=== PATIENT | male | born 1960 | race Caucasian/White ===

== ENCOUNTER 2017-09-27 12:01 | Outpatient (CLI) | payer OTHER ==
[2017-09-27 12:44] LABS: Hematocrit 42.8 % (35.5-45.6); Hemoglobin 14.8 gm/dl (11.8-15.2); Mean Corpuscular HGB Conc 35 % (32-34); Mean Corpuscular Hemoglobin 32 pg (28-32); Mean Corpuscular Volume 93 fl (84-94); Platelet Count 254 K/mm3 (140-440)
[2017-09-27 12:54] LABS: Alanine Aminotransferase 18 units/L (7-56); Albumin 3.9 g/dL (3.9-5); BUN/Creatinine Ratio 14; Blood Urea Nitrogen 11 mg/dL (9-20); Calcium 8.5 mg/dL (8.4-10.2); Hemolysis Index 9
== END 2017-09-27 12:02 | disposition home or self-care (01) ==
LOC: CARD 12:01
PROVIDERS: ATTEND Surgery
DX: K40.90 Unilateral inguinal hernia, without obstruction or gangrene, not specified as recurrent (principal)
CPT/HCPCS: 36415; 80053; 85027; 93005; 93010

== ENCOUNTER 2017-10-06 06:26 | Day surgery (SDC) | payer OTHER ==
[2017-10-06] MEDS ORDERED: WATER FOR IRRIG STERILE IR ONE (07:02)
[2017-10-06] MEDS ORDERED: WATER FOR IRRIG STERILE ONE (07:02)
--- NOTE | 2017-10-06 07:23 | Anesthesia Consultation ---
Anesthesia Consult and Med Hx Date of service: 10/06/17 - Airway Anesthetic Teeth Evaluation: Good ROM Head & Neck: Adequate Mental/Hyoid Distance: Adequate Mallampati Class: Class I Intubation Access Assessment: Good - Pulmonary Exam CTA: Yes - Cardiac Exam Cardiac Exam: RRR - Pre-Operative Health Status ASA Pre-Surgery Classification: ASA2 Proposed Anesthetic Plan: MAC - Pulmonary Hx Smoking: Yes
--- NOTE | 2017-10-06 07:28 | Anesthesia Day of Surgery ---
Anesthesia Day of Surgery - Day of Surgery Patient Examined: Yes Patient H&P Reviewed: Yes Patient is NPO: Yes
--- NOTE | 2017-10-06 07:31 | Anesthesia Day of Surgery ---
Anesthesia Day of Surgery - Day of Surgery Patient Examined: Yes Patient H&P Reviewed: Yes Patient is NPO: Yes
[2017-10-06] MEDS ORDERED: NACL 0.9% 1000 ML 1,000 ML ONE (07:36)
[2017-10-06] MEDS ORDERED: DIPRIVAN 10 MG/ML IV ONE ×2 (07:40)
--- NOTE | 2017-10-06 08:47 | Procedure Note ---
Date of procedure: 10/06/17 Pre-op diagnosis: Screening colonoscopy Post-op diagnosis: same Procedure: Colonoscopy to cecum Description of procedure: Pt was placed in a left side down position. He was sedated IV by anesthesia. The colonoscope was inserted into his rectum and was advanced retrograde while directly visualizing the colonic lumen. The prep was fair. Once the cecum was identified, the scope was slowly withdrawn with careful, circumferential visualization of the colonic mucosa. No polyps, tumors , ulcerations or diverticula were noted although small polyps/tumors could have been missed b/o the prep. Retroflexed view of the distal rectum was also performed and was unrevealing. Insufflated air was suctioned and the scope was withdrawn. Pt tolerated the procedure well. Anesthesia: MAC Surgeon: ZAIDA ANGELES Estimated blood loss: none Pathology: none Condition: stable Disposition: PACU
--- NOTE | 2017-10-06 09:57 | Post Anesthesia Evaluation ---
- Post Anesthesia Evaluation Patient Participated: Yes Airway Patent: Yes Stable Respiratory Function: Yes Nausea/Vomiting: No Temp > 96.8F: Yes Pain Manageable: Yes Adequeate Hydration: Yes Anesthesia Complications: No
[2017-10-06 11:46] VITALS: BP 136/92
== END 2017-10-06 06:27 | disposition home or self-care (01) ==
LOC: GIO 06:26
PROVIDERS: ATTEND Surgery
DX: Z12.11 Encounter for screening for malignant neoplasm of colon (principal); Z87.891 Personal history of nicotine dependence
CPT/HCPCS: 45378; J2704; J7030

== ENCOUNTER 2017-10-19 11:18 | Day surgery (SDC) | payer OTHER ==
[2017-10-19] MEDS ORDERED: ANCEF/STERILE WATER 2 GM/20 ML IV NR (12:00)
--- NOTE | 2017-10-19 12:20 | Anesthesia Consultation ---
Anesthesia Consult and Med Hx Date of service: 10/19/17 - Airway Anesthetic Teeth Evaluation: Good ROM Head & Neck: Adequate Mental/Hyoid Distance: Adequate Mallampati Class: Class II Intubation Access Assessment: Probably Good - Pulmonary Exam CTA: Yes - Cardiac Exam Cardiac Exam: RRR - Pre-Operative Health Status ASA Pre-Surgery Classification: ASA2 Proposed Anesthetic Plan: General - Pulmonary Hx Smoking: Yes
--- NOTE | 2017-10-19 12:21 | Anesthesia Day of Surgery ---
Anesthesia Day of Surgery - Day of Surgery Patient Examined: Yes Patient H&P Reviewed: Yes Patient is NPO: Yes
--- NOTE | 2017-10-19 12:37 | History and Physical Report ---
History of Present Illness Date of examination: 10/19/17 Chief complaint: RIH History of present illness: 57 yo male with a 5 year h/o a slowly enlarging right groin mass. This is becoming increasingly more tender. He denies associated nausea, vomiting, melena, hematochezia or change in bowel habits. A colonoscopy on 10/06/17 was unremarkable. Past History Past Medical History: No medical history Past Surgical History: No surgical history Social history: smoking (He smokes 3-4 cigarettes per day. He drinks alcohol only occasionally.) Medications and Allergies Allergies Allergy/AdvReac Type Severity Reaction Status Date / Time No Known Allergies Allergy Unverified 09/27/17 12:02 Active Meds: Active Medications Cefazolin Sodium (Ancef/Sterile Water 2 Gm/20 Ml) 2 gm IV PREOP NR Stop: 10/19/17 23:00 Famotidine (Pepcid) 20 mg PO PREOP NR Stop: 10/19/17 23:59 Lactated Ringer's (Lactated Ringers) 1,000 mls @ 100 mls/hr IV DIRECT MAG Midazolam HCl (Versed) 2 mg IV PREOP NR Stop: 10/19/17 23:59 Review of Systems All systems: negative (ROS was o/w unremarkable.) Exam - General physical appearance Positive: well developed, well nourished, no distress - Eyes Positive: PERRL, normal occular movement - ENT Positive: normal pinna, normal nares, normal mucosa, no hearing loss, no congestion - Neck Positive: no masses, no bruits, trachea midline, no venous distension - Respiratory Positive: normal expansion, normal respiratory effort, clear to auscultation - Cardiovascular Rhythm: regular Heart Sounds: Present: S1 & S2. Absent: rub, click - Extremities Extremities: no ischemia, pulses symmetrical, No edema - Breasts Breasts: normal, no mass, no skin changes - Abdomen Abdomen: Present: soft, bowel sounds normal. Absent: tender, distended Hernia: none (There is a moderate sized, reducible RIH.) - Genitourinary Male Genitourinary: normal Female Genitourinary: normal - Integumentary no rash, no growths, no abnormal pigmentation - Neurologic Neurologic: alert and oriented to time, place and person, motor strength and sensation are grossly intact - Musculoskeletal normal gait, normal posture - Psychiatric Psychiatric: appropriate mood/affect, intact judgment & insight Results - Imaging EKG: report reviewed (ECG performed on 09/27/17 revealed NSR and was o/w unremarkable.) Assessment and Plan - Patient Problems (1) Right inguinal hernia Current Visit: Yes Status: Acute Plan to address problem: 1) Laparoscopic repair 2) Prophylactic Ancef, IPC and SQ Heparin (2) Tobacco abuse Current Visit: Yes Status: Acute Plan to address problem: 1) Encouraged pt to stop smoking. He is aware that smoking is associated with an increased risk of infection and hernia recurrence.
[2017-10-19] MEDS ORDERED: HEPARIN SUB-Q NR (12:45)
[2017-10-19] MEDS ORDERED: DIPRIVAN 10 MG/ML IV ONE (12:59)
[2017-10-19] MEDS ORDERED: PEPCID PO NR (13:00)
[2017-10-19] MEDS ORDERED: DILAUDID ONE (13:00)
[2017-10-19] MEDS ORDERED: ZEMURON IV ONE (13:00)
[2017-10-19] MEDS ORDERED: XYLOCAINE MPF 2% ONE (13:00)
[2017-10-19] MEDS ORDERED: VERSED IV NR (13:00)
[2017-10-19] MEDS ORDERED: SUBLIMAZE ONE ×2 (13:00→14:37)
[2017-10-19] MEDS ORDERED: LACTATED RINGERS 1,000 ML IV SCH (13:00)
[2017-10-19] MEDS ORDERED: MARCAINE 0.25% INFILTRATI ONE ×2 (13:17→14:22)
[2017-10-19] MEDS ORDERED: DECADRON ONE (14:06)
[2017-10-19] MEDS ORDERED: ROBINUL ONE ×2 (14:27)
[2017-10-19] MEDS ORDERED: ZOFRAN ONE (14:27)
[2017-10-19] MEDS ORDERED: NEOSTIGMINE ONE (14:27)
[2017-10-19] MEDS ORDERED: LOPRESSOR IV ONE (15:05)
[2017-10-19] MEDS ORDERED: LACTATED RINGERS 1,000 ML ONE (15:15)
--- NOTE | 2017-10-19 15:32 | Post Operative Note ---
Pre-op diagnosis: RIH Post-op diagnosis: same (direct) Procedure: Laparoscopic RIH repair Anesthesia: EMELIA Surgeon: ZAIDA ANGELES Estimated blood loss: minimal Pathology: none Condition: stable Disposition: PACU
[2017-10-19] MEDS ORDERED: PERCOCET 5/325 PO ONE (16:57)
[2017-10-19 17:37] VITALS: BP 123/83
--- NOTE | 2017-10-22 10:07 | Operative Report ---
Operative Report Operative Report: Date of operation: 10/19/2017 Preoperative diagnosis: Right inguinal hernia Postoperative diagnosis: same, direct Operation: Laparoscopic repair of right inguinal hernia Surgeon: Roverto Conti M.D. Anesthesia: GETA EBL: Minimal There were no complications, drains, specimens or cultures. Description of procedure: Patient was placed supine on the operating room table. After adequate general anesthesia was obtained, an indwelling Thornton catheter was inserted. His abdomen genitalia and upper thighs were prepped and draped. Proposed trocar sites were infiltrated with 7 mL of 0.5% Marcaine. A small infraumbilical incision was made. The right anterior rectus sheath was exposed and a small transverse incision made in the right anterior rectus sheath. The right rectus muscle was then retracted laterally and the balloon dilator inserted into the preperitoneal space. The balloon dilator was then insufflated with good exposure of the preperitoneal space. The balloon dilator was then removed and a Mateus port inserted into the preperitoneal space. Two 5 mm ports were then placed in the midline of the hypogastrium into the preperitoneal space under direct vision without incident. Patient was placed in a Trendelenburg position with his right side rotated up. A direct right inguinal hernia was identified and this was already partially reduced. The direct right inguinal hernia was fully reduced. The right spermatic cord was skeletonized and no evidence of an indirect hernia was identified. A medium piece of Bard 3-D max mesh was inserted into the preperitoneal space. This was secured to the symphysis with 2 tacks of the pro tacker. The mesh was also secured laterally and medially with additional tacks with all of the tacks placed anterior/medial to the iliopubic tract. Insufflated air in the preperitoneal space was released. The 5 mm ports were removed. The defect in the right anterior rectus sheath was repaired with 2 interrupted sutures of 0 Ethibond. Skin incisions were closed with running subcuticular sutures of 4-0 Monocryl. Incisions were dressed with sterile 2 x 2's and Tegaderm. Patient tolerated the procedure well. He was extubated in the operating room and was then taken to PACU in stable condition.
== END 2017-10-19 17:44 | disposition home or self-care (01) ==
LOC: OR 11:18
PROVIDERS: ATTEND Surgery
DX: K40.90 Unilateral inguinal hernia, without obstruction or gangrene, not specified as recurrent (principal); F17.210 Nicotine dependence, cigarettes, uncomplicated
CPT/HCPCS: 49650; C1781; J0690; J1100; J1170; J1644; J2250; J2405; J2704; J2710; J3010; J7120

== ENCOUNTER 2017-10-24 09:18 | Emergency (ER) | payer OTHER ==
--- NOTE | 2017-10-24 10:33 | Ultrasound Report ---
Testicular sonogram: History: Pain and swelling. Findings: Right testis measures 4.2 x 2.1 x 3.2 cm. Uniform echogenicity with normal color flow. Normal head body and tail of epididymis. There is a large hypoechoic/isoechoic mass identified in the posterior-lateral aspect of right testis and does not include the epididymis. Probably a hematoma. It measures 5.8 x 2.3 x 1 cm and no abnormal flow is noted within the mass. Minimal hydrocele. Left testis measures 4 x 1.8 x 2.9 cm. Uniform echogenicity with normal color flow. Cyst in the head of the left epididymis measures 0.5 x 0.4 x 0.7 cm. Left varicocele. Impression: Mass posterior-lateral right testis probably a hematoma among others. Left varicocele. Cyst in the head of left epididymis.
[2017-10-24 11:03] LABS: Basophils % (Auto) 0.2 % (0.0-1.8); Eosinophils # (Auto) 0.3 K/mm3 (0.0-0.4); Eosinophils % (Auto) 2.7 % (0.0-4.3); Hematocrit 35.8 % (35.5-45.6); Lymphocytes # (Auto) 1.7 K/mm3 (1.2-5.4); Lymphocytes % (Auto) 17.9 % (13.4-35.0); Mean Corpuscular HGB Conc 34 % (32-34); Mean Corpuscular Hemoglobin 31 pg (28-32); Mean Corpuscular Volume 93 fl (84-94); Monocytes # (Auto) 0.8 K/mm3 (0.0-0.8); Monocytes % (Auto) 8.1 % (0.0-7.3); Platelet Count 248 K/mm3 (140-440); Red Blood Count 3.83 M/mm3 (3.65-5.03); Red Cell Distribution Width 12.9 % (13.2-15.2)
[2017-10-24] MEDS ORDERED: NACL 0.9% 1000 ML 1,000 ML IV ONE (11:04)
[2017-10-24] MEDS ORDERED: MORPHINE IV ONE (11:05)
[2017-10-24 11:14] LABS: Alanine Aminotransferase 21 units/L (7-56); BUN/Creatinine Ratio 16; Blood Urea Nitrogen 13 mg/dL (9-20); Calcium 8.5 mg/dL (8.4-10.2); Hemolysis Index 12
--- NOTE | 2017-10-24 11:35 | Emergency Department Report ---
HPI - General Chief Complaint: Urogenital-Male Time Seen by Provider: 10/24/17 10:50 - HPI HPI: This is a 57-year-old male presents to the emergency department with complaint of right-sided testicular pain and swelling that has been going on since this morning. The patient is about 5 days postop from a right inguinal direct hernia repair by Dr. [facility]. Since having that done, he was having some issues with hiccups. He went back and saw the surgeon who started him on Thorazine for the hiccups which works temporarily. Yesterday he says he had 1 or 2 episodes of dark appearing stool. He also had some difficulty with urination but says that he does feel like intermission coordinator his bladder. However when he woke up this morning he noticed the pain and swelling of the testicle and came in to be seen. No recent travel or sick contacts at home. ED Past Medical Hx - Past Medical History Previous Medical History?: No - Surgical History Additional Surgical History: hernia surgery - Social History Smoking Status: Current Every Day Smoker Substance Use Type: None - Medications Home Medications: Home Medications Medication Instructions Recorded Confirmed Last Taken Type No Known Home Medications [No 10/19/17 10/19/17 Unknown History Reported Home Medications] ED Review of Systems ROS: Stated complaint: TESTICLE SWELLING Other details as noted in HPI Comment: All other systems reviewed and negative Constitutional: denies: chills, fever Eyes: denies: eye pain, eye discharge, vision change ENT: denies: ear pain, throat pain Respiratory: denies: cough, shortness of breath, wheezing Cardiovascular: denies: chest pain, palpitations Gastrointestinal: melena. denies: diarrhea Genitourinary: dysuria, testicular pain Musculoskeletal: denies: back pain, joint swelling, arthralgia Skin: denies: rash, lesions Neurological: denies: headache, weakness, paresthesias Physical Exam - Physical Exam Vital Signs: Vital Signs 10/24/17 09:34 Temperature 98.2 F Pulse Rate 118 H Respiratory 18 Rate Blood Pressure 150/89 O2 Sat by Pulse 100 Oximetry Physical Exam: GENERAL: The patient is well-developed well-nourished. HENT: Normocephalic. Atraumatic. Patient has moist mucous membranes. EYES: Extraocular motions are intact. Pupils equal reactive to light bilaterally. NECK: Supple. Trachea is midline. CHEST/LUNGS: Clear to auscultation. There is no respiratory distress noted. HEART/CARDIOVASCULAR: Regular. There is no tachycardia. There is no murmur. ABDOMEN: Abdomen is soft, nontender. Patient has normal bowel sounds. There is no abdominal distention. SKIN: Skin is warm and dry. There is some nonpitting scrotal swelling that is worse on the right. There is also some right inguinal swelling. : There is some nonpitting scrotal swelling that is worse on the right. There is also some right inguinal swelling. Mild tenderness palpation to the right side of the scrotum. NEURO: The patient is awake, alert, and oriented. The patient is cooperative. The patient has no focal neurologic deficits. The patient has normal speech and gait. MUSCULOSKELETAL: There is no tenderness or deformity. There is no limitation range of motion. There is no evidence of acute injury. ED Course Vital Signs 10/24/17 09:34 Temperature 98.2 F Pulse Rate 118 H Respiratory 18 Rate Blood Pressure 150/89 O2 Sat by Pulse 100 Oximetry - Consultations Consultation #1: I spoke with the patient's general surgeon, Dr. Conti, who listened to the case presentation including labs and imaging results and physical examination and feels that the patient is safe for discharge home at this time. However he would like to see the patient tomorrow in his office at 10:30 AM. 10/24/17 15:15 ED Medical Decision Making - Lab Data Result diagrams: 10/24/17 10:39 10/24/17 10:39 - Radiology Data Radiology results: report reviewed CT scan of abdomen and pelvis with IV contrast: History: Postop pelvic and testicular pain. Findings: Bibasilar atelectasis lower lobes. No pleural or pericardial effusion. Small sliding hiatal hernia. Normal liver spleen pancreas and gallbladder. Normal adrenals, kidney parenchyma and bladder. Minimal intraperitoneal and retroperitoneal air and subcutaneous air probably related to previous surgery. No free intraperitoneal fluid. No evidence of adenopathy. Normal aorta. Right inguinal mass of soft tissue density with air bubbles and probably mesenteric fat. In absence of orally ingested contrast, cannot definitely identify bowel within the mass. Evidence of hematoma noted within the mass. Anterior to the bladder and posterior to the anterior abdominal wall, at the site of previous surgery, there is ill-defined density measuring 4.5 x 2.6 cm in diameter noted which probably could be a hematoma or unopacified small bowel loops. Gaseous colon with stool in colon. Normal appendix. No evidence of diverticulitis. Impression: Findings as detailed above. Clinical correlation and followup advised. Transcribed By: PTP Dictated By: GLORIA TAN MD Electronically Authenticated By: GLORIA TAN MD Signed Date/Time: 10/24/17 1211 Testicular sonogram: History: Pain and swelling. Findings: Right testis measures 4.2 x 2.1 x 3.2 cm. Uniform echogenicity with normal color flow. Normal head body and tail of epididymis. There is a large hypoechoic/isoechoic mass identified in the posterior-lateral aspect of right testis and does not include the epididymis. Probably a hematoma. It measures 5.8 x 2.3 x 1 cm and no abnormal flow is noted within the mass. Minimal hydrocele. Left testis measures 4 x 1.8 x 2.9 cm. Uniform echogenicity with normal color flow. Cyst in the head of the left epididymis measures 0.5 x 0.4 x 0.7 cm. Left varicocele. Impression: Mass posterior-lateral right testis probably a hematoma among others. Left varicocele. Cyst in the head of left epididymis. Transcribed By: PTP Dictated By: GLORIA TAN MD Electronically Authenticated By: GLORIA TAN MD Signed Date/Time: 10/24/17 1015 - Medical Decision Making Patient presents 5 days status post right inguinal direct hernia repair laparoscopically with complaint of scrotal swelling and right-sided scrotal/ testicular pain. There does not appear to be any cellulitis. Testicular Doppler ultrasound does not show any signs of any torsion but there is a small area of mass, that may be hematoma, that is posterior lateral to the right testicle. Labs have been otherwise unremarkable including no leukocytosis. The patient has not had any trouble urinating and does not have any dysuria or hematuria, but he has not left us a urine sample for testing at this time. I did a CT scan of the abdomen and pelvis with IV contrast that once again shows an area where the patient had surgery of some mass or density that very well could be hematoma in the same posterior to the bladder. The possibility that it is small bowel cannot 100% be ruled out since oral contrast was not used but does not appear consistent with the patient's presentation and the fact that he just had hernia repair. On top of that, per the consultation section, the general surgeon was contacted and will see the patient in the office tomorrow at 10:30 AM. The patient already has some antibiotics that he has been taking, he already has pain medication to take at home. He was given a referral to follow up with Dr. Conti but was also given a urology referral in case he needs it. He has been encouraged to return to the emergency Department with any worsening of symptoms or any acute distress. - Differential Diagnosis testicular torsion, epididymitis, malignancy, varicocele Critical Care Time: No Critical care attestation.: If time is entered above; I have spent that time in minutes in the direct care of this critically ill patient, excluding procedure time. ED Disposition Clinical Impression: Post-op pain, Testicular/scrotal pain, Scrotum swelling, Scrotal hematoma Disposition: - TO HOME OR SELFCARE Is pt being admited?: No Condition: Stable Instructions: Testicle Pain (ED) Additional Instructions: Please follow up tomorrow with Dr. Conti, your general surgeon. It is also recommended that he follow up with your primary care physician as soon as possible. I have given you a referral for a local urologist, Dr. Elizabeth, in case you need to follow up with a urologist regarding the scrotal/testicular pain and swelling. Return to the emergency Department with any worsening of your symptoms or any acute distress. Referrals: ZAIDA CONTI MD [Staff Physician] - 10/25/17 10:30 am ALE ELIZABETH MD [Staff Physician] - 3-5 Days PRIMARY CARE, [Primary Care Provider] - 3-5 Days Time of Disposition: 13:17
--- NOTE | 2017-10-24 12:30 | Cat Scan Report ---
CT scan of abdomen and pelvis with IV contrast: History: Postop pelvic and testicular pain. Findings: Bibasilar atelectasis lower lobes. No pleural or pericardial effusion. Small sliding hiatal hernia. Normal liver spleen pancreas and gallbladder. Normal adrenals, kidney parenchyma and bladder. Minimal intraperitoneal and retroperitoneal air and subcutaneous air probably related to previous surgery. No free intraperitoneal fluid. No evidence of adenopathy. Normal aorta. Right inguinal mass of soft tissue density with air bubbles and probably mesenteric fat. In absence of orally ingested contrast, cannot definitely identify bowel within the mass. Evidence of hematoma noted within the mass. Anterior to the bladder and posterior to the anterior abdominal wall, at the site of previous surgery, there is ill-defined density measuring 4.5 x 2.6 cm in diameter noted which probably could be a hematoma or unopacified small bowel loops. Gaseous colon with stool in colon. Normal appendix. No evidence of diverticulitis. Impression: Findings as detailed above. Clinical correlation and followup advised.
[2017-10-24 13:28] VITALS: BP 133/69
== END 2017-10-24 13:34 | disposition home or self-care (01) ==
LOC: ED 09:18
DX: N50.811 Right testicular pain (principal); N50.89 Other specified disorders of the male genital organs; G89.18 Other acute postprocedural pain; F17.200 Nicotine dependence, unspecified, uncomplicated; Z98.890 Other specified postprocedural states; R10.2 Pelvic and perineal pain
CPT/HCPCS: 36415; 74177; 80053; 85025; 93975; 96361; 96374; 99284; J2270; J7030; Q9967